=== PATIENT | female | born 1955 | race Caucasian/White ===

== ENCOUNTER 2022-09-04 13:33 | Emergency (ER) | payer MEDICARE, MEDICAID ==
[~2022-09-04] VITALS: Ht 154.9 cm; Wt 69.1 kg
[2022-09-04 13:48] VITALS: BP 172/90
[2022-09-04] MEDS ORDERED: dexamethasone sod phosphate 10mg/ml inj IM STA (14:47)
[2022-09-04] MEDS ORDERED: PRED10TA23 PO (15:10)
[2022-09-04] MEDS ORDERED: CEPH-585 PO (15:10)
== END 2022-09-04 15:32 | disposition home or self-care (01) ==
LOC: ER 13:33
DX: L23.7 Allergic contact dermatitis due to plants, except food (principal); L03.011 Cellulitis of right finger; Z88.2 Allergy status to sulfonamides
CPT/HCPCS: 96372; 99283; J1100

== ENCOUNTER 2024-08-30 10:49 | Emergency (ER) | payer MEDICARE, MEDICAID ==
[~2024-08-30] VITALS: Ht 152.4 cm; Wt 70.5 kg
[2024-08-30 10:51] VITALS: BP 154/86; PULSE 98; RESP 16; TEMP 97.5; O2SAT 99
[2024-08-30] MEDS: triamcinolone acetonide 40mg/ml inj IM ONE (11:36)
[2024-08-30] MEDS ORDERED: METH4TAB81 PO (11:54)
[2024-08-30] MEDS ORDERED: TRIA15CR61 TOP (11:54)
--- NOTE | 2024-08-30 11:55 | Physician Documentation ---
History of Present Illness ~ Chief Complaint: Rash Stated Complaint: POISON OAK Time Seen by MD: 11:22 OK to notify your PCP?: Yes Primary Medical Doctor: SUKHDEEP Source: patient Mode of Arrival: POV (Being) Exam Limitations: no limitations HPI 69-year-old female with itchy rash on her extremities which she describes as poison oak. She states she has had poison oak before and she is requesting a steroid injection as well as medication to help with the itching. She states she was unable to sleep all night due to the itching. No fever, chills, SOB, pain. Medication Reconciliation Allergies: Coded Allergies: Sulfa (Sulfonamide Antibiotics) (Unverified Allergy, Unknown, 08/30/24) Past Medical History Past Medical History: No Pertinent History Past Surgical History: orthopedic surgeries, other Alcohol Use: None Drug Use: none Lives with: Alone Lives In: Home Occupation: disabled Review of Systems All Other Systems at this time: Reviewed and Negative Physical Exam Vital Signs: Temperature: 97.5, Source: Temporal, Heart Rate: 98, Respiratory Rate: 16, BP: 154/86, Pulse Oximetry: 99, Weight: 70.450 Oxygen Flow Rate: 0 Physical Exam General Appearance: Alert, WD/WN. NAD. HEENT: NCAT, PERRL, EOMI. Neck: Supple, trachea midline. Cardiovascular: RRR. No m/r/g. Lungs: CTAB. Breathing unlabored Extremities: Normal inspection. No edema. Skin: Warm/dry, normal color. Erythematous streaky macular rash on forearms left forearm the rash covers a larger area surface area with some fascicles and areas of excoriation. Neurological: Alert and oriented x4, normal gait. Psychiatric: Affect congruent with mood. Progress Results/Orders Results/Orders Completed Orders - FEI WHITTEN Triamcinolone Acet 40mg/Ml Inj (Kenalog- (08/30/24 11:25) Medications Received in ER Medications (Trade) Dose Ordered Sig/[place] Route PRN Reason Start Time Stop Time Status Last Admin Dose Admin (Kenalog-40 inj) 40 mg ONCE ONCE IM 08/30/24 11:25 08/30/24 11:26 DC 08/30/24 11:36 40 MG Vital Signs 08/30/24 10:51 Temp 97.5 Pulse 98 Resp 16 B/P (MAP) 154/86 Pulse Ox 99 O2 Flow Rate 0 Medical Decision Making Differential Dx:Considerations: Include: Abscess, AIDS/HIV, Anthrax (cutaneous), Atopic dermatitis, Candidiasis, Contact dermatitis, Drug reaction, Erythema multiforme, Erysipelas, Gangrene, Herpes zoster, Herpes simplex, Hidradenitis suppurativa, Impetigo, Intertrigo, Lymes disease, Molluscum contagiosum, Osteomyelitis, Pediculosis, Pityriasis rosea, Psoriaisis, RMSF, Rosacea, Scabies, Scarlet fever, Tinea, Urticaria, Varicella, Viral exanthema Departure Time of Disposition: 11:53 Disposition: 01 HOME / SELF CARE / HOMELESS Impression: Primary Impression: Poison oak dermatitis Condition: Stable Discharge Instructions: Contact Dermatitis Additional Instructions: I sent steroid pills to your pharmacy which he would not start until tomorrow since we gave you an injection of steroid here. You can take Benadryl to help with the itching and insomnia as well. Return to the ER you have any atypical symptoms such as pain, fever, chills, shortness of breath Referrals: NO PRIMARY CARE PROVIDER (PCP) Prescriptions Triamcinolone Acetonide 0.5% Crm* (Kenalog 0.5% Crm*) 15 Gm Tube 1 APPLIC TOP Q12H for 30 Days, #30 GM apply to forearm as needed for itching Prov: FEI WHITTEN 08/30/24 Methylprednisolone (Medrol Dosepak) 4 Mg Tab.ds.pk 0 PO UD, #21 TAB 0 Refills take 6 Pills Day 1, 5 Pills Day 2, 4 Pills Day 3, 3 Pills Day 4, 2 Pills Day 5 and 1 pill Day 6 Prov: FEI WHITTEN 08/30/24 Education Educated: Patient Educated regarding: diagnosis, treatment, need for follow up Signature Abner Signature: pete Attestation: FEI Kelley Aug 30, 2024 11:55
== END 2024-08-30 12:15 | disposition home or self-care (01) ==
LOC: ER 10:50
DX: L23.7 Allergic contact dermatitis due to plants, except food (principal); Z88.2 Allergy status to sulfonamides
CPT/HCPCS: 96372; 99283; A6258; J3301